=== PATIENT | male | born 1995 | race Caucasian/White ===

== ENCOUNTER 2019-06-30 20:35 | Emergency (ER) | payer OTHER ==
[~2019-06-30] VITALS: Ht 182.9 cm; Wt 72.6 kg
[~2019-06-30 20:35] MED LIST: RISPERIDONE1 MG PO
[2019-06-30 23:00] VITALS: BP 126/70
== END 2019-06-30 23:05 | disposition home or self-care (01) ==
LOC: ER 20:35
DX: S09.90XA Unspecified injury of head, initial encounter (principal); W22.8XXA Striking against or struck by other objects, initial encounter; Y93.67 Activity, basketball; Y92.89 Other specified places as the place of occurrence of the external cause; Y99.8 Other external cause status

== ENCOUNTER 2021-05-14 09:48 | Emergency (ER) | payer OTHER ==
[~2021-05-14] VITALS: Ht 185.4 cm; Wt 77.1 kg
[2021-05-14 13:55] VITALS: BP 134/92
== END 2021-05-14 13:55 | disposition home or self-care (01) ==
LOC: ER 09:48
DX: S01.511A Laceration without foreign body of lip, initial encounter (principal); R51.9 Headache, unspecified; Z79.899 Other long term (current) drug therapy; W01.111A Fall on same level from slipping, tripping and stumbling with subsequent striking against power tool or machine, initial encounter; Y93.89 Activity, other specified; Y92.89 Other specified places as the place of occurrence of the external cause; Y99.8 Other external cause status